=== PATIENT | female | born 1970 | race Caucasian/White ===

== ENCOUNTER 2024-08-26 17:37 | Emergency (ER) | payer BC ==
[~2024-08-26] VITALS: Ht 167.6 cm; Wt 81.6 kg
[2024-08-26] MEDS: KETOROLAC TROMETHAMINE 60 MG/2 ML VIAL IM STA (18:06)
[2024-08-26 19:00] VITALS: PULSE 75; RESP 16; TEMP 98.4; O2SAT 100
[2024-08-26] MEDS ORDERED: ULTRAM 50MG50 MG PO (19:10)
== END 2024-08-26 19:03 | disposition home or self-care (01) ==
LOC: ER 17:46
DX: M25.561 Pain in right knee (principal); M25.461 Effusion, right knee; W18.39XA Other fall on same level, initial encounter; Y93.01 Activity, walking, marching and hiking
CPT/HCPCS: 73562; 99283; J1885